=== PATIENT | female | born 1985 | race African-American/Black ===

== ENCOUNTER 2018-12-13 04:21 | Emergency (ER) | payer OTHER ==
[~2018-12-13] VITALS: Ht 167.6 cm; Wt 64.9 kg
[~2018-12-13 04:21] MED LIST: AMOXICILLIN875 MG PO; APRI1 EACH PO; DIFLUCAN150 MG PO; FLAGYL500 MG PO; HYDROXYZINE HCL25 M1 PO; IBUPROFEN 800800 M1 PO; LEVOTHYROXINE0.05 MG PO; LIORESAL 10 MG10 MG PO; NOHOMEMEDICATIONS; NORCO 5-325 TA1 EACH PO; TESSALON200 MG PO; ULTRAM50 MG PO
[2018-12-13] MEDS ORDERED: PRENATAL (04:36)
[2018-12-13 04:50] LABS: URINE BILIRUBIN NEGATIVE (Negative); URINE BLOOD 3+ (Negative); URINE COLOR YELLOW; URINE GLUCOSE-RANDOM NEGATIVE (Negative); URINE KETONES TRACE (Negative); URINE LEUKOCYTES-REFLEX TRACE (Negative); URINE NITRITE-REFLEX NEGATIVE (Negative); URINE PROTEIN 1+ (Negative); URINE SPECIFIC GRAVITY 1.025 (1.005-1.030); URINE UROBILINOGEN 0.2 E.U./dl (0.2-1.0)
[2018-12-13 04:51] LABS: URINE CLARITY SL HAZY
[2018-12-13 05:10] LABS: CASTS None Seen /LPF (None Seen); MUCUS 0-3 Light strn/LPF (None Seen); SQUAMOUS 0-3 Few /LPF (0-3); URINE RBC >20 Many /HPF (0-2); URINE WBC-REFLEX 6-15 Few /HPF (0-5)
[2018-12-13 05:11] LABS: CRYSTALS None Seen /LPF (None Seen)
[2018-12-13 05:42] VITALS: BP 129/85
== END 2018-12-13 05:42 | disposition home or self-care (01) ==
LOC: M.ERS 04:21
PROVIDERS: Personal Emergency Response Attendant
DX: O20.0 Threatened abortion (principal); E03.9 Hypothyroidism, unspecified; Z98.890 Other specified postprocedural states; Z3A.01 Less than 8 weeks gestation of pregnancy; Z79.899 Other long term (current) drug therapy